=== PATIENT | female | born 1960 | race Two or more races ===

== ENCOUNTER 2018-05-05 10:39 | Emergency (ER) | payer OTHER ==
[2018-05-05 10:55] VITALS: BP 131/78; PULSE 79; TEMP 98.9; BMI 26.6
--- NOTE | 2018-05-05 12:27 | PDOC ---
History of Present Illness - General Chief Complaint: Cold Symptoms Stated Complaint: COUGH,WEAKNESS Time Seen by Provider: 05/05/18 11:28 History Source: Patient Exam Limitations: No Limitations Past History - Travel Traveled outside of the country in the last 30 days: No Close contact w/someone who was outside of country & ill: No - Past Medical History Allergies/Adverse Reactions: Allergies Allergy/AdvReac Type Severity Reaction Status Date / Time No Known Allergies Allergy Verified 05/29/15 13:39 Home Medications: Ambulatory Orders Levothyroxine [Synthroid -] 150 mcg PO DAILY 05/25/12 Multivitamin [Multivitamins] 1 each PO DAILY 05/25/12 Sertraline HCl [Zoloft -] 50 mg PO DAILY 05/25/12 Sitagliptin Phos/Metformin HCl [Janumet Xr 50-500 mg Tablet] 1 each PO DAILY Ciprofloxacin HCl/Dexameth [Ciprodex Otic Suspension] 4 drop AD BID #1 bottle Guaifenesin [Robitussin] 100 mg PO Q6H #200 ml 05/05/18 Permethrin [Elimite] 60 gm TP ONCE #1 tube 05/05/18 Cancer: Yes (THYROID) COPD: No Diabetes: Yes (BORDERLINE) Disorders: Yes (PROLAPSED BLADDER) Hypercholesterolemia: Yes Psychiatric Problems: Yes (DEPRESSION) Thyroid Disease: Yes (HYPO) - Surgical History Abdominal Surgery: Yes - Immunization History Immunization Up to Date: Yes - Suicide/Smoking/Psychosocial Hx Smoking Status: No Smoking History: Never smoked Have you smoked in the past 12 months: No Number of Cigarettes Smoked Daily: 0 Information on smoking cessation initiated: No Hx Alcohol Use: No Drug/Substance Use Hx: No Substance Use Type: None Review of Systems - Review of Systems Able to Perform ROS?: Yes Comments:: 05/05/18 13:27 CONSTITUTIONAL: Absent: fever, chills, diaphoresis, generalized weakness, malaise, loss of appetite HEENT: Absent: rhinorrhea, nasal congestion, throat pain, throat swelling, difficulty swallowing, mouth swelling, ear pain, eye pain, visual Changes CARDIOVASCULAR: Absent: chest pain, loss of consciousness, palpitations, irregular heart rate, peripheral edema RESPIRATORY: Absent: cough, shortness of breath, dyspnea with exertion, orthopnea, wheezing, stridor, hemoptysis GASTROINTESTINAL: Absent: abdominal pain, abdominal distension, nausea, vomiting, diarrhea, constipation, melena, hematochezia GENITOURINARY: Absent: dysuria, frequency, urgency, hesitancy, hematuria, flank pain, genital pain MUSCULOSKELETAL: Absent: myalgia, arthralgia, joint swelling SKIN: Absent: rash, itching, pallor HEMATOLOGIC/IMMUNOLOGIC: Absent: easy bleeding, easy bruising, lymphadenopathy, frequent infections ENDOCRINE: Absent: unexplained weight gain, unexplained weight loss, heat intolerance, cold intolerance NEUROLOGIC: Absent: headache, focal weakness or paresthesias, dizziness, unsteady gait, seizure, mental status changes, bladder or bowel incontinence PSYCHIATRIC: Absent: anxiety, depression, suicidal or homicidal ideation, hallucinations. Is the patient limited Albanian proficient: No *Physical Exam - Vital Signs Last Vital Signs Temp Pulse Resp BP Pulse Ox 98.9 F 79 16 131/78 96 05/05/18 10:52 05/05/18 10:52 05/05/18 10:52 05/05/18 10:52 05/05/18 10:52 *DC/Admit/Observation/Transfer Diagnosis at time of Disposition: URI (upper respiratory infection) Qualifiers: URI type: unspecified URI Qualified Code(s): J06.9 - Acute upper respiratory infection, unspecified Bedbug bite Qualifiers: Encounter type: initial encounter Qualified Code(s): W57.XXXA - Bitten or stung by nonvenomous insect and other nonvenomous arthropods, initial encounter Otitis externa Qualifiers: Otitis externa type: unspecified type Chronicity: acute Laterality: right Qualified Code(s): H60.501 - Unspecified acute noninfective otitis externa, right ear - Discharge Dispostion Disposition: HOME Condition at time of disposition: Stable Decision to Admit order: No - Prescriptions Prescriptions: Ciprofloxacin HCl/Dexameth [Ciprodex Otic Suspension] 4 drop AD BID #1 bottle Guaifenesin [Robitussin] 100 mg PO Q6H #200 ml Permethrin [Elimite] 60 gm TP ONCE #1 tube - Referrals Referrals: Henri Youngblood MD [Staff Physician] - Mahendra Carey MD [Staff Physician] - - Patient Instructions Printed Discharge Instructions: DI for Viral Upper Respiratory Infection -- Adult Additional Instructions: You have an upper respiratory infection, or the common cold. Please take Motrin 800 mg every 8 hours as needed for pain not to exceed 3000 mg a day. Drink plenty of fluids. Cough drops and warm tea may help your symptoms as well. You have otitis externa. This is an infection of the ear canal. Please use the eardrops once a day as directed for the next 10 days to the affected ear. Do not put anything in the ear, including q-tips. Keep the ear dry. Do not go swimming for the next 2 weeks. Pat the ear dry with a towel after showering. Follow up with ENT if your symptoms are not improving in 7-10 days You were also given cream for bedbugs. Apply the cream once and let sit for 6 hours. Then wash it off You were given appointments to see a primary care doctor and an [facility] [employer] Follow up with Dr. Azul on 05/08/18 at 1pm (primary) [facility] [address] [phone] Casper on 05/07/18 at 3pm (psych arnp) [address] [phone] Return to the emergency department if you have difficulty breathing, shortness of breath, worsening pain, nausea, vomiting or if you have any changes in your symptoms. - Post Discharge Activity Forms/Work/School Notes: Back to Work
== END 2018-05-05 12:27 | disposition home or self-care (01) ==
LOC: JERFT 10:39
DX: J06.9 Acute upper respiratory infection, unspecified (principal); H60.501 Unspecified acute noninfective otitis externa, right ear; T14.8XXA Other injury of unspecified body region, initial encounter; W57.XXXA Bitten or stung by nonvenomous insect and other nonvenomous arthropods, initial encounter; Y93.89 Activity, other specified; Y92.032 Bedroom in apartment as the place of occurrence of the external cause; Y99.8 Other external cause status
CPT/HCPCS: 99281-25

== ENCOUNTER 2018-11-19 07:57 | Day surgery (SDC) | payer OTHER ==
[2018-11-18 15:35] VITALS: BMI 27.6
[2018-11-19 09:29] VITALS: TEMP 98.6
[2018-11-19 14:58] VITALS: BP 119/65; PULSE 71
--- NOTE | 2018-11-20 17:53 | PATH ---
Surgical Pathology Report Patient Name: MARTINA CLIFFORD [facility]. Rec. #: [id number] /Age/Gender: 1960 (Age: 58) / F Account: [id number] Location: U-ENDOSCOPY Taken: 11/19/2018 Received: 11/19/2018 Reported: 11/20/2018 Physicians: Kt Majano D.O. Specimen(s) Received BODY AND ANTRUM Clinical History GERD Postoperative diagnosis: Gastritis Final Diagnosis STOMACH, BODY/ANTRUM, BIOPSY: GASTRIC MUCOSA WITH MILD CHRONIC GASTRITIS. IMMUNOHISTOCHEMICAL STAIN FOR H. PYLORI IS NEGATIVE. Electronically Signed Prabha Hernandez M.D. Gross Description Received in formalin, labeled "biopsy body/antrum" are 2 laughlin, irregular portions of soft tissue measuring 0.3 and 0.4 cm. in greatest dimension. The specimens are submitted in toto in one cassette. /11/19/2018 saudi11/19/2018
== END 2018-11-19 10:15 | disposition home or self-care (01) ==
LOC: JASU-ENDO 07:57
PROVIDERS: ATTEND Internal Medicine Gastroenterology
PROC: 0DB68ZX Excision of Stomach, Via Natural or Artificial Opening Endoscopic, Diagnostic (ICD-10-PCS; principal; 2018-11-19 09:00)
DX: K21.9 Gastro-esophageal reflux disease without esophagitis (principal); E11.9 Type 2 diabetes mellitus without complications; K29.70 Gastritis, unspecified, without bleeding
CPT/HCPCS: 88305-TC; 88342-TC

== ENCOUNTER 2019-05-02 06:07 | Emergency (ER) | payer OTHER ==
[2019-05-02 06:21] VITALS: TEMP 98.3; BMI 26.6
[2019-05-02 06:40] LABS: EPI CELLS 8.1 /HPF (0-5/HPF); HYALINE CASTS 4 /lpf (0-8); URINE APPEARANCE CLOUDY; URINE BACTERIA 82.2 /hpf (NEGATIVE); URINE BILIRUBIN NEGATIVE (NEGATIVE); URINE COLOR YELLOW; URINE GLUCOSE (UA) NEGATIVE (NEGATIVE); URINE KETONE NEGATIVE (NEGATIVE); URINE LEUK ESTERASE NEGATIVE (NEGATIVE); URINE NITRITE NEGATIVE (NEGATIVE); URINE PROTEIN NEGATIVE (NEGATIVE); URINE RBC 5 /hpf (0-4); URINE UROBILINOGEN 0.2 mg/dL (0.2-1.0); URINE WBC 1 /hpf (0-5)
--- NOTE | 2019-05-02 07:12 | PDOC ---
Attending Attestation - Resident Resident Name: Katt Frank - HPI HPI: 05/02/19 10:02 Pt presents to the ED complaining of diffuse abdominal pain with nausea. Denies fever or vomiting or dysuria. Seen in the ED yesterday, prescribed antibiotics and pyridium for UTI and returns today because pain is not improving. Pain is diffuse, but worst in the epigastrium and the suprapubic area, - Physicial Exam PE: 05/02/19 10:03 Agree with resident exam. Patient is alert and in NAD. Abdomen is soft, non distended without guarding or rebound. + mild diffuse abdominal tenderness. - Medical Decision Making 05/02/19 10:05 Pt presents to the ED complaining of abdominal pain that is not improved on treatment for UTI. Differential includes diverticulitis, abscess, unlikely appendicitis, UTI. Will check labs and CT abdomen pelvis, give pain control. 05/02/19 10:49 Ct shows cystic mass consistent with ovarian CA. Will send for pelvic US to further characterize mass. Case discussed with Dr. Romo, who will see the patient in her office next week. THe patient understands that she may have ovarian cancer and that it is imperative for her to follow up.
[2019-05-02] MEDS ORDERED: ACETAMINOPHEN 1000 MG/100 ML VIAL (NON FORMULARY) IVPB ONE (07:20)
--- NOTE | 2019-05-02 07:23 | PDOC ---
History of Present Illness - General Chief Complaint: Pain Stated Complaint: ABD PAIN Time Seen by Provider: 05/02/19 07:12 - History of Present Illness Initial Comments: 05/02/19 07:24 58 yo F PMH partial hysterectomy 30 years ago c/b prolapse, depression, hypothyroidism, borderline diabetes, p/w abdominal pain. Reports cramping primarily suprapubic abdominal pain for the past week, comes in 04/01 waves moving upwards. Reports going to an urgent care and getting antibiotics for a UTI despite a UA without evidence of UTI. Endorses nausea without vomiting, chills, burning with urination, 1 episode of diarrhea. Denies CP, SOB, constipation, fevers, recent travel, sick contacts, vaginal bleeding, discharge. Past History - Past Medical History Allergies/Adverse Reactions: Allergies Allergy/AdvReac Type Severity Reaction Status Date / Time ampicillin Allergy Verified 05/02/19 06:21 Penicillins Allergy Verified 05/02/19 06:20 Home Medications: Ambulatory Orders Levothyroxine [Synthroid -] 112 mcg PO DAILY 05/25/12 Multivitamin [Multivitamins] 1 each PO DAILY 05/25/12 Sertraline HCl [Zoloft -] 50 mg PO DAILY 05/25/12 Alendronate Sodium [Binosto] 70 mg PO DAILY 11/18/18 Celecoxib [Celebrex] 200 mg PO PRN 11/18/18 Albuterol Sulfate [Albuterol Sulfate Hfa] 8.5 gm IH PRN PRN 11/19/18 Cholecalciferol (Vitamin D3) [Vitamin D3] 1,000 unit PO DAILY 11/19/18 Pravastatin Sodium [Pravachol (Nf)] 40 mg PO DAILY 05/02/19 Cancer: Yes (THYROID) COPD: No (H/O BRONCHITIS USES INHALER) Diabetes: Yes (BORDERLINE,DIET CONTROLLED) GI Disorders: Yes (GERD, FECAL INCONTINENC, INTERMITTENT CONSTIPATION) Disorders: Yes (UTERINE PROLAPSED, URINARY FREQUENCY) Hypercholesterolemia: Yes Psychiatric Problems: Yes (DEPRESSION) Thyroid Disease: Yes (HYPO) - Surgical History Abdominal Surgery: Yes - Immunization History Immunization Up to Date: Yes - Psycho Social/Smoking Cessation Hx Smoking Status: No Smoking History: Never smoked Have you smoked in the past 12 months: No Number of Cigarettes Smoked Daily: 0 Hx Alcohol Use: No Drug/Substance Use Hx: No Substance Use Type: None Review of Systems - Review of Systems Able to Perform ROS?: Yes Constitutional: Yes: Chills. No: Diaphoresis, Fever HEENTM: No: Recent change in vision, Double Vision, Tinnitus, Hearing Loss, Mouth Pain, Difficulty Swallowing Respiratory: No: Cough, Orthopnea, Shortness of Breath Cardiac (ROS): No: Chest Pain, Edema, Irregular Heart Rate, Lightheadedness, Palpitations, Syncope, Chest Tightness ABD/GI: Yes: Abd. Pain w/ defecation, Diarrhea, Nausea, Abdominal cramping. No : Constipated, Rectal Bleeding, Vomiting : Yes: Burning. No: Discharge, Frequency, Flank Pain, Hematuria Musculoskeletal: No: Back Pain, Muscle Pain Neurological: No: Headache, Numbness, Tingling, Weakness *Physical Exam - Vital Signs Last Vital Signs Temp Pulse Resp BP Pulse Ox 98.3 F 90 18 119/77 95 05/02/19 06:19 05/02/19 06:19 05/02/19 06:19 05/02/19 06:19 05/02/19 06:19 - Physical Exam Comments: 05/02/19 07:51 Gen: well-developed, well-nourished, appears uncomfortable Neuro: AAOX4, CN II-XII intact, FTN intact, EOMI, PERRLA, 5/5 strength, SILT HEENT: atraumatic, normocephalic, dry mucous membranes Neck: trachea midline, supple CV: regular rate, regular rhythm, no murmurs, rubs, or gallops Pulm: CTA b/l, no wheezing Abd: soft, non-distended, diffusely tender, worst in RLQ and suprapubic MSK: full ROM, intact pulses Extr: no edema, no deformities Skin: warm, dry ED Treatment Course - LABORATORY CBC & Chemistry Diagram: 05/02/19 07:44 05/02/19 07:44 - ADDITIONAL ORDERS Additional order review: Laboratory Results 05/02/19 06:30 Urine Color Yellow Urine Appearance Cloudy Urine pH 5.0 Ur Specific Warren 1.020 Urine Protein Negative Urine Glucose (UA) Negative Urine Ketones Negative Urine Blood 1+ H Urine Nitrite Negative Urine Bilirubin Negative Urine Urobilinogen 0.2 Ur Leukocyte Esterase Negative Urine WBC (Auto) 1 Urine RBC (Auto) 5 Urine Casts (Auto) 4 U Epithel Cells (Auto) 8.1 Urine Bacteria (Auto) 82.2 - RADIOLOGY Radiology Studies Ordered: Category Date Time Status CXRPORT [CHEST X-RAY PORTABLE*] [RAD] Stat Radiology 05/02/19 07:20 Ordered Medical Decision Making - Medical Decision Making 05/02/19 07:49 Concern for diverticulitis v appendicitis. - CBC, CMP - EKG, CXR - coags - T+S - CT abd/pelvis w/ contrast pending Cr - morphine 4mg 05/02/19 08:25 CXR with no acute pathology. 05/02/19 08:43 Cr normal, will get contrast study. 05/02/19 10:30 CT abd/pelvis concerning for ovarian 12 cm cyst containing 6cm lesion concerning for ovarian CA. Discussed patient with Dr. Francis, recommends close outpatient follow-up. Patient made aware. Will get TVUS to better characterize the lesion. 05/02/19 11:45 TVUS: 14.1 x 10.0 x 11.8 cm complex cystic structure containing a heterogeneous solid mass within measuring 6.4 x 5.1 x 6.2 cm. The mass has vascularity. Discharge - Discharge Information Problems reviewed: Yes Clinical Impression/Diagnosis: Ovarian mass Condition: Stable Disposition: HOME - Follow up/Referral Referrals: Evelin Francis MD [Staff Physician] - - Patient Discharge Instructions Patient Printed Discharge Instructions: DI for Ovarian Cancer Additional Instructions: You were seen with pelvic pain. Imaging was performed, which is concerning for ovarian cancer. It is very important that you follow up with [facility] within the next few days for further workup. The number is listed in the discharge paperwork, please call them this Friday morning. We have also given you copies of your CT scan report to take with you. Take ibuprofen/Tylenol as needed for pain. Return to the ED if you develop worsening symptoms. - Post Discharge Activity Work/Back to School Note: Back to Work
[2019-05-02] MEDS ORDERED: morphine CARPU-JECT 4 MG/1 ML DISP.SYRIN IVPUSH ONE (07:32)
[2019-05-02] MEDS ORDERED: morphine SULFATE 4 MG/ML VIAL ONE (07:52)
[2019-05-02 08:02] LABS: BASO % 0.6 % (0-2.0); EOS % 1.2 % (0-4.5); HEMATOCRIT 36.8 % (32.4-45.2); HEMOGLOBIN 12.5 GM/dL (10.7-15.3); LYMPH % 26.9 % (8-40); MCH 29.5 pg (25.7-33.7); MEAN CELL VOLUME 86.7 fl (80-96); MEAN PLT VOLUME 8.8 fl (7.5-11.1); MONO % 7.2 % (3.8-10.2); NEUT % 64.1 % (42.8-82.8); PLATELET COUNT 239 K/MM3 (134-434); RBC 4.24 M/mm3 (3.60-5.2); RDW 14.8 % (11.6-15.6); WHITE BLOOD COUNT 5.9 K/mm3 (4.0-10.0)
[2019-05-02 08:20] LABS: INR 1.02 (0.83-1.09)
[2019-05-02 08:28] LABS: ALBUMIN 3.6 g/dl (3.4-5.0); BILIRUBIN,TOTAL 0.3 mg/dL (0.2-1); BLOOD UREA NITROGEN 12.3 mg/dL (7-18); CALCIUM 9.4 mg/dL (8.5-10.1); CREATININE 0.6 mg/dL (0.55-1.3); POTASSIUM 4.3 mmol/L (3.5-5.1); TOT PROT 7.2 g/dl (6.4-8.2)
--- NOTE | 2019-05-02 10:50 | EKG ---
Test Reason : Blood Pressure : / mmHG Vent. Rate : 076 BPM Atrial Rate : 076 BPM P-R Int : 132 ms QRS Dur : 082 ms QT Int : 346 ms P-R-T Axes : 047 037 018 degrees QTc Int : 389 ms NORMAL SINUS RHYTHM NONSPECIFIC T WAVE ABNORMALITY ABNORMAL ECG WHEN COMPARED WITH ECG OF 11-DEC-2012 13:26, NO SIGNIFICANT CHANGE WAS FOUND Confirmed by WICHO REDDING MD ([id number]) on 05/02/2019 10:49:44 AM Referred By: Confirmed By:WICHO REDDING MD
[2019-05-02 12:11] VITALS: BP 120/68; PULSE 84
== END 2019-05-02 12:11 | disposition home or self-care (01) ==
LOC: JER 06:07
PROC: 3E033NZ Introduction of Analgesics, Hypnotics, Sedatives into Peripheral Vein, Percutaneous Approach (ICD-10-PCS; principal; 2019-05-02)
DX: N83.8 Other noninflammatory disorders of ovary, fallopian tube and broad ligament (principal); Z88.0 Allergy status to penicillin
CPT/HCPCS: 36415; 71045-TC-FY; 74177-TC; 76830-TC; 80053; 81003; 83690; 85025; 85610; 85730; 86850; 86900; 86901; 87086; 93005; 93010; 96374; 99284-25

== ENCOUNTER 2021-01-12 11:41 | Emergency (ER) | payer OTHER ==
[2021-01-12 11:59] VITALS: BP 113/75; PULSE 71; TEMP 98; BMI 27.1
[2021-01-12] MEDS ORDERED: ACETAMINOPHEN 1000 MG/100 ML VIAL (NON FORMULARY) IVPB ONE (12:58)
[2021-01-12] MEDS ORDERED: ONDANSETRON *ODT* 4 MG TABLET SL ONE (12:58)
[2021-01-12] MEDS ORDERED: SODIUM CHLORIDE 1,000 ML IV STA (12:58)
[2021-01-12] MEDS ORDERED: ACETAMINOPHEN INJECTION 100 ML IVPB ONE (13:12)
[2021-01-12] MEDS ORDERED: ONDANSETRON *ODT* 4 MG TABLET ONE (13:30)
[2021-01-12 13:43] LABS: BASO % 0.6 % (0-2.0); EOS % 1.2 % (0-4.5); HEMATOCRIT 36.9 % (32.4-45.2); HEMOGLOBIN 12.2 GM/dL (10.7-15.3); LYMPH % 33.9 % (8-40); MCH 29.2 pg (25.7-33.7); MCHC 33.1 g/dl (32.0-36.0); MEAN CELL VOLUME 88.3 fl (80-96); MEAN PLT VOLUME 8.5 fl (7.5-11.1); MONO % 8.2 % (3.8-10.2); NEUT % 56.1 % (42.8-82.8); PLATELET COUNT 216 10^3/uL (134-434); RBC 4.18 M/mm3 (3.60-5.2); RDW 14.3 % (11.6-15.6); WHITE BLOOD COUNT 7.2 K/mm3 (4.0-10.0)
[2021-01-12 13:45] LABS: PH,URINE 6.5 (5.0-8.0); URINE APPEARANCE CLEAR; URINE BILIRUBIN NEGATIVE (NEGATIVE); URINE COLOR YELLOW; URINE GLUCOSE (UA) NEGATIVE (NEGATIVE); URINE KETONE NEGATIVE (NEGATIVE); URINE LEUK ESTERASE NEGATIVE (NEGATIVE); URINE NITRITE NEGATIVE (NEGATIVE); URINE PROTEIN NEGATIVE (NEGATIVE); URINE UROBILINOGEN 0.2 mg/dL (0.2-1.0)
[2021-01-12 13:51] LABS: INR 1.03 (0.83-1.09); PROTHROMBIN TIME (PATIENT) 12.5 SEC (9.7-13.0)
[2021-01-12 14:02] LABS: ALBUMIN 3.8 g/dl (3.4-5.0); CALCIUM 9.6 mg/dL (8.5-10.1)
[2021-01-12 14:03] LABS: BLOOD UREA NITROGEN 11.2 mg/dL (7-18)
[2021-01-12 14:06] LABS: CREATININE 0.6 mg/dL (0.55-1.3)
[2021-01-12 14:08] LABS: BILIRUBIN,TOTAL 0.3 mg/dL (0.2-1); TOT PROT 7.3 g/dl (6.4-8.2)
== END 2021-01-12 17:35 | disposition home or self-care (01) ==
LOC: JER 11:41
PROC: 3E0333Z Introduction of Anti-inflammatory into Peripheral Vein, Percutaneous Approach (ICD-10-PCS; principal; 2021-01-12)
PROC: 3E0337Z Introduction of Electrolytic and Water Balance Substance into Peripheral Vein, Percutaneous Approach (ICD-10-PCS; 2021-01-12)
DX: K52.9 Noninfective gastroenteritis and colitis, unspecified (principal)
CPT/HCPCS: 36415; 74177-TC; 76705-TC; 80053; 81003; 83605; 83690; 85025; 85610; 87086; 99285-25; J0131; Q0162

== ENCOUNTER 2021-03-15 03:23 | Observation (INO) | payer OTHER ==
[2021-03-15 03:41] VITALS: BMI 27.3
[2021-03-15] MEDS ORDERED: ACETAMINOPHEN 1000 MG/100 ML VIAL (NON FORMULARY) IVPB ONE ×2 (04:03→23:16)
[2021-03-15] MEDS ORDERED: ACETAMINOPHEN INJECTION 100 ML IVPB ONE (04:17)
[2021-03-15 04:43] LABS: BASO % 0.5 % (0-2.0); EOS % 0.8 % (0-4.5); HEMATOCRIT 35.6 % (32.4-45.2); LYMPH % 18.3 % (8-40); MCH 29.1 pg (25.7-33.7); MCHC 33.6 g/dl (32.0-36.0); MEAN CELL VOLUME 86.6 fl (80-96); MEAN PLT VOLUME 8.3 fl (7.5-11.1); MONO % 8.3 % (3.8-10.2); NEUT % 72.1 % (42.8-82.8); PLATELET COUNT 211 10^3/uL (134-434); RBC 4.11 M/mm3 (3.60-5.2); RDW 13.9 % (11.6-15.6); WHITE BLOOD COUNT 8.1 K/mm3 (4.0-10.0)
[2021-03-15 04:49] LABS: INR 0.93 (0.83-1.09); PROTHROMBIN TIME (PATIENT) 11.4 SEC (9.7-13.0)
[2021-03-15 04:52] LABS: ACTIVATED PTT 27.5 SECONDS (25.2-36.5)
[2021-03-15 04:57] LABS: CHLORIDE 105 mmol/L (98-107); SODIUM 140 mmol/L (136-145)
[2021-03-15 04:59] LABS: CALCIUM 8.8 mg/dL (8.5-10.1)
[2021-03-15 05:01] LABS: ALBUMIN 3.4 g/dl (3.4-5.0); ANION GAP 3 MMOL/L (8-16); BLOOD UREA NITROGEN 14.6 mg/dL (7-18); CO2 31 mmol/L (21-32); GLUCOSE,RANDOM 177 mg/dL (74-106)
[2021-03-15 05:03] LABS: CREATININE 0.7 mg/dL (0.55-1.3); SGOT/AST 16 U/L (15-37); SGPT/ALT 23 U/L (13-61)
[2021-03-15 05:04] LABS: BILIRUBIN,TOTAL 0.2 mg/dL (0.2-1)
[2021-03-15 05:05] LABS: TOT PROT 7.2 g/dl (6.4-8.2)
[2021-03-15 05:06] LABS: ALK PHOS 74 U/L (45-117)
[2021-03-15 06:09] LABS: EPI CELLS 18 /uL (0-25.1); HYALINE CASTS 2 /uL (0-3.1); PH,URINE 5.5 (5.0-8.0); URINE APPEARANCE CLEAR; URINE BACTERIA 41 /uL (0-1359); URINE BILIRUBIN NEGATIVE (NEGATIVE); URINE COLOR YELLOW; URINE GLUCOSE (UA) NEGATIVE (NEGATIVE); URINE KETONE NEGATIVE (NEGATIVE); URINE LEUK ESTERASE NEGATIVE (NEGATIVE); URINE NITRITE NEGATIVE (NEGATIVE); URINE PROTEIN NEGATIVE (NEGATIVE); URINE RBC 61 /uL (0-23.9); URINE WBC 7 /uL (0-25.8)
[2021-03-15] MEDS ORDERED: ASPIRIN 81 MG CHEWABLE TABLETS PO ONE (07:04)
[2021-03-15] MEDS ORDERED: ASPIRIN 81 MG CHEWABLE TABLETS ONE (07:19)
[2021-03-15] MEDS ORDERED: MAG HYDROX/AL HYDROX/SIMETH 30 ML UNIT-DOSE CUP PO ONE (08:11)
[2021-03-15] MEDS ORDERED: MAG HYDROX/AL HYDROX/SIMETH 30 ML UNIT-DOSE CUP ONE (08:34)
[2021-03-15 09:17] LABS: LIPASE 82 U/L (73-393)
[2021-03-15] MEDS: LEVOTHYROXINE NA 112 MCG TABLET (FP) PO SCH (12:00)
[2021-03-15] MEDS ORDERED: ENOXAPARIN NA (PORCINE) 40 MG/0.4 ML DISP.SYRIN SQ ONE (12:05)
[2021-03-15] MEDS: ENOXAPARIN NA (PORCINE) 40 MG/0.4 ML DISP.SYRIN SQ SCH (12:59)
[2021-03-15] MEDS: PANTOPRAZOLE 40 MG TABLET PO SCH (13:01)
[2021-03-15] MEDS: SERTRALINE HCL 50 MG TABLET (FP) PO SCH (13:01)
[2021-03-15] MEDS ORDERED: SERTRALINE HCL 50 MG TABLET (FP) ONE (13:01)
[2021-03-15] MEDS ORDERED: PANTOPRAZOLE 40 MG TABLET ONE (13:01)
[2021-03-15] MEDS: INSULIN SLIDING SCALE (NOVOLOG) 1 VIAL SQ SCH ×2 (13:37→16:38)
[2021-03-15] MEDS ORDERED: ACETAMINOPHEN 325 MG TABLET (FP) PO PRN (13:48)
[2021-03-15] MEDS ORDERED: ACETAMINOPHEN 325 MG TABLET (FP) ONE (18:34)
[2021-03-15] MEDS ORDERED: ATORVASTATIN CA 10 MG TABLET (FP) PO SCH (22:00)
[2021-03-16] MEDS: LEVOTHYROXINE NA 112 MCG TABLET (FP) PO SCH (06:13)
[2021-03-16] MEDS: INSULIN SLIDING SCALE (NOVOLOG) 1 VIAL SQ SCH ×2 (06:25→11:37)
[2021-03-16] MEDS: SERTRALINE HCL 50 MG TABLET (FP) PO SCH (10:40)
[2021-03-16] MEDS: PANTOPRAZOLE 40 MG TABLET PO SCH (10:41)
[2021-03-16] MEDS ORDERED: ACETAMINOPHEN 1000 MG/100 ML VIAL (NON FORMULARY) IVPB PRN (10:50)
[2021-03-16] MEDS: ENOXAPARIN NA (PORCINE) 40 MG/0.4 ML DISP.SYRIN SQ SCH (13:32)
[2021-03-16 14:11] VITALS: TEMP 98.1
[2021-03-16 14:47] VITALS: BP 110/68; PULSE 78
[2021-03-17] MEDS ORDERED: ALENDRONATE SODIUM 70 MG PO SCH (10:00)
== END 2021-03-16 17:28 | disposition home or self-care (01) ==
LOC: JER 03:23 → JERBED 06:23 → J4W 18:48
PROVIDERS: ADMIT Internal Medicine
PROC: 3E033NZ Introduction of Analgesics, Hypnotics, Sedatives into Peripheral Vein, Percutaneous Approach (ICD-10-PCS; principal; 2021-03-15)
PROC: 3E023GC Introduction of Other Therapeutic Substance into Muscle, Percutaneous Approach (ICD-10-PCS; 2021-03-15)
DX: R07.81 Pleurodynia (principal); R09.02 Hypoxemia; E78.00 Pure hypercholesterolemia, unspecified; R06.02 Shortness of breath; F32.9 Major depressive disorder, single episode, unspecified; K21.9 Gastro-esophageal reflux disease without esophagitis; Z85.43 Personal history of malignant neoplasm of ovary; E78.5 Hyperlipidemia, unspecified; Z85.850 Personal history of malignant neoplasm of thyroid; E03.9 Hypothyroidism, unspecified; R07.9 Chest pain, unspecified; Z88.8 Allergy status to other drugs, medicaments and biological substances; Z88.0 Allergy status to penicillin; Z90.89 Acquired absence of other organs
CPT/HCPCS: 36415; 71275-TC; 72125-TC; 74176-TC; 80053; 81003; 82550; 82962; 83036; 83690; 83735; 84439; 84443; 84484; 85025; 85610; 85730; 87086; 93005; 93010; 96372; 96374; 96376; 99285-25; C9803; G0378; J0131; U0003; U0005